=== PATIENT | female | born 1975 | race Caucasian/White ===

== ENCOUNTER 2016-06-21 10:12 | Emergency (ER) | payer SELFPAY ==
[~2016-06-21] VITALS: Ht 170.2 cm; Wt 88.9 kg
[~2016-06-21 10:12] MED LIST: ALBUTEROL SULF8.5 GM IH; ALBUTEROL17 GM IH; ATIVAN1 MG PO; ENDOCET 5-3251 EACH PO; FLEXERIL10 MG PO; FLOVENT 11120 INHALA IH; FLOVENT DISKUS1 DISK IH; JUNEL FE 1.5-31 EACH PO; JUNEL1 EAC1 PO; LEVOTHYROXINE100 MCG PO; MEDROL DOSEPAK4 MG PO; MOTRIN800 MG PO; NAPROSYN500 MG PO; PREDNISONE20 MG PO; PRILOSEC40 MG PO; PROAIR HFA8.5 GM IH
[2016-06-21 13:27] LABS: INFLUENZA A VIRAL ANTIGEN NEGATIVE; INFLUENZA B VIRAL ANTIGEN NEGATIVE
[2016-06-21] MEDS ORDERED: ROBITUSSIN NIG118 ML PO (13:35)
[2016-06-21] MEDS ORDERED: TESSALON PERLE100 MG PO (13:35)
[2016-06-21] MEDS ORDERED: MUCUS ER600 MG PO (13:35)
[2016-06-21] MEDS ORDERED: FLONASE16 G1 BOTH NARES (13:37)
[2016-06-21 13:57] VITALS: BP 112/67
== END 2016-06-21 13:57 | disposition home or self-care (01) ==
LOC: EME 10:12 → EXP 10:12
PROVIDERS: Nurse Practitioner Family
DX: J06.9 Acute upper respiratory infection, unspecified (principal); J02.8 Acute pharyngitis due to other specified organisms; J34.89 Other specified disorders of nose and nasal sinuses; Z91.040 Latex allergy status; R51 Headache; Z88.5 Allergy status to narcotic agent; Z88.8 Allergy status to other drugs, medicaments and biological substances; Z88.6 Allergy status to analgesic agent; J45.909 Unspecified asthma, uncomplicated; E03.9 Hypothyroidism, unspecified
CPT/HCPCS: 87502; 87651 90; 99281; 99284; J1885

== ENCOUNTER 2016-07-15 22:21 | Emergency (ER) | payer SELFPAY ==
[~2016-07-15] VITALS: Ht 170.2 cm; Wt 89.4 kg
[~2016-07-15 22:21] MED LIST changes: +FLONASE16 G1 BOTH NARES; +MUCUS ER600 MG PO; +ROBITUSSIN NIG118 ML PO; +TESSALON PERLE100 MG PO
[2016-07-15 23:06] LABS: HEMATOCRIT 41.3 % (36.0-46.0); MCH 32.2 PG (29.0-34.0); MCHC 32.9 G/DL (30.0-36.0); MCV 97.9 FL (83-99); MEAN PLAT.VOLUME 9.6 uM^3 (9.5-12.4); PLATELET COUNT 309 K/uL (156-360); RBC DIS.WIDTH-CV 12.8 % (11.8-14.6); RBC DIS.WIDTH-SD 46.1 % (39-53); RED BLOOD COUNT 4.22 M/uL (3.80-5.20); WHITE BLOOD COUNT 10.6 K/uL (4.1-10.2)
[2016-07-15 23:20] LABS: CHLORIDE 105 mEq/L (99-109); POTASSIUM 3.5 mEq/L (3.7-5.4); SODIUM 140 mEq/L (136-147)
[2016-07-15 23:21] LABS: GLUCOSE 106 mg/dL (70-99)
[2016-07-15 23:23] LABS: ANION GAP 9 MEQ/L (2-14)
[2016-07-15 23:25] LABS: GFR ESTIMATE (CALCULATED) > 59 mL/min/
[2016-07-15 23:26] LABS: UREA NITROGEN (BUN) 11 mg/dL (9-23)
[2016-07-16] MEDS ORDERED: MEDROL DOSEPAK4 MG PO (00:44)
[2016-07-16] MEDS ORDERED: ROBITUSSIN AC,T10 ML PO (00:44)
[2016-07-16 00:53] VITALS: BP 144/91
== END 2016-07-16 00:54 | disposition home or self-care (01) ==
LOC: EME 22:21
DX: J45.909 Unspecified asthma, uncomplicated (principal); E03.9 Hypothyroidism, unspecified
CPT/HCPCS: 71020; 80048; 85027; 93005; 94640; 94640 76; 99281; 99284

== ENCOUNTER 2016-10-30 13:18 | Emergency (ER) | payer SELFPAY ==
[~2016-10-30] VITALS: Ht 170.2 cm; Wt 89.0 kg
[~2016-10-30 13:18] MED LIST changes: +ROBITUSSIN AC,T10 ML PO
[2016-10-30 16:13] LABS: ADD MIUA? YES; BILIRUBIN NEGATIVE; BLOOD NEGATIVE; COLOR YELLOW ((YELLOW)); GLUCOSE (STRIP) NEGATIVE; KETONES NEGATIVE; LEUKOCYTES NEGATIVE; NITRITE NEGATIVE; PROTEIN (STRIP) NEGATIVE; UROBILINOGEN 0.2 MG/DL (0.2-1.0)
[2016-10-30 16:16] LABS: BACTERIA RARE /HPF; EPITHELIAL CELLS 1+ /HPF; MUCUS 1+ /LPF; RED BLOOD CELLS 0-5 /HPF (0-5); WHITE BLOOD CELLS 0-5 /HPF (0-5)
[2016-10-30] MEDS ORDERED: METROGEL-VAGINA70 GM VG (17:04)
[2016-10-30 17:32] VITALS: BP 122/75
[2016-10-31 13:11] LABS: CHLAMYDIA TRACHOMATIS NEGATIVE; NEISSERIA GONORRHOEAE NEGATIVE
== END 2016-10-30 17:32 | disposition home or self-care (01) ==
LOC: EME 13:18
PROVIDERS: Physician Assistant
DX: T19.2XXA Foreign body in vulva and vagina, initial encounter (principal); X58.XXXA Exposure to other specified factors, initial encounter; J45.909 Unspecified asthma, uncomplicated
CPT/HCPCS: 76856; 81003; 87210; 87491; 87591; 99281; 99284

== ENCOUNTER 2016-12-27 12:58 | Emergency (ER) | payer OTHER ==
[~2016-12-27] VITALS: Ht 170.2 cm; Wt 88.4 kg
[~2016-12-27 12:58] MED LIST changes: +METROGEL-VAGINA70 GM VG
[2016-12-27 14:41] LABS: HEMATOCRIT 41.4 % (36.0-46.0); MCH 32.5 PG (29.0-34.0); MCHC 33.6 G/DL (30.0-36.0); MCV 96.7 FL (83-99); MEAN PLAT.VOLUME 9.4 uM^3 (9.5-12.4); PLATELET COUNT 257 K/uL (156-360); RBC DIS.WIDTH-CV 12.6 % (11.8-14.6); RBC DIS.WIDTH-SD 45.3 % (39-53); RED BLOOD COUNT 4.28 M/uL (3.80-5.20)
[2016-12-27 14:54] LABS: CHLORIDE 106 mEq/L (99-109); POTASSIUM 4.1 mEq/L (3.7-5.4); SODIUM 139 mEq/L (136-147)
[2016-12-27 14:56] LABS: GLUCOSE 96 mg/dL (70-99)
[2016-12-27 14:58] LABS: ANION GAP 10 MEQ/L (2-14); TOTAL BILIRUBIN 0.8 mg/dL (0.0-1.0)
[2016-12-27 15:00] LABS: ALKALINE PHOSPHATASE 76 IU/L (3-129); GFR ESTIMATE (CALCULATED) > 59 mL/min/
[2016-12-27 15:01] LABS: UREA NITROGEN (BUN) 9 mg/dL (9-23)
[2016-12-27 15:45] LABS: ADD MIUA? YES; BILIRUBIN NEGATIVE; BLOOD NEGATIVE; COLOR YELLOW ((YELLOW)); GLUCOSE (STRIP) NEGATIVE; KETONES NEGATIVE; LEUKOCYTES NEGATIVE; NITRITE NEGATIVE; PROTEIN (STRIP) NEGATIVE; SPECIFIC GRAVITY 1.023 (1.000-1.030); UROBILINOGEN 0.2 MG/DL (0.2-1.0)
[2016-12-27 15:52] LABS: BACTERIA NONE SEEN /HPF; EPITHELIAL CELLS RARE /HPF; MUCUS 2+ /LPF; RED BLOOD CELLS 0-5 /HPF (0-5); UCUL ADDED? NO; WHITE BLOOD CELLS 0-5 /HPF (0-5)
[2016-12-27] MEDS ORDERED: ZOFRAN ODT4 MG PO (17:45)
[2016-12-27] MEDS ORDERED: MOTRIN800 MG PO (17:45)
[2016-12-27] MEDS ORDERED: ULTRAM50 MG PO (17:47)
[2016-12-27 18:03] VITALS: BP 117/69
== END 2016-12-27 18:05 | disposition home or self-care (01) ==
LOC: EME 12:58
PROVIDERS: Nurse Practitioner Family
DX: N83.202 Unspecified ovarian cyst, left side (principal); R10.32 Left lower quadrant pain; R11.0 Nausea; J45.909 Unspecified asthma, uncomplicated; E03.9 Hypothyroidism, unspecified; Z90.710 Acquired absence of both cervix and uterus
CPT/HCPCS: 74000; 74177; 76856; 80053; 81003; 85027; 99281; 99285; J1885; J2405